=== PATIENT | female | born 1980 | race Caucasian/White ===

== ENCOUNTER 2016-12-07 03:43 | Emergency (ER) | payer BC, OTHER ==
[~2016-12-07] VITALS: Ht 154.9 cm; Wt 126.0 kg
[~2016-12-07 03:43] MED LIST: MISC-696; MTR600X PO; OXYC5TAB PO; PRENTAB26 PO
[2016-12-07 03:46] VITALS: TEMP 36.9; Ht 154.9 cm; Wt 126.0 kg
[2016-12-07] MEDS ORDERED: MoRPHine SULFATE 10 MG/ML CARP/VIAL IM STA (04:07)
[2016-12-07] MEDS ORDERED: OXYC1TAB3 PO (04:13)
[2016-12-07] MEDS ORDERED: PRED20TA PO (04:13)
--- NOTE | 2016-12-07 04:14 | EMERGENCY ROOM VISIT NOTE ---
ED Visit Note First contact with patient: 03:54 CHIEF COMPLAINT: Low back and right leg pain HISTORY OF PRESENT ILLNESS: This 36-year-old female patient presents to the emergency department ambulatory complaining of pain in the low back which began 3 weeks ago. The pain was gradual in onset, is now constant and worse with movement. The patient notes the pain as sharp and a 9/10. The patient has taken Aleve and muscle relaxer with no relief of the pain. The patient denies any bowel or bladder difficulties. There has been no leg numbness or weakness, and no change in sensation. No nausea or vomiting or abdominal pain. No chest pain or shortness of breath. The patient has not had prior back injuries. The patient states her symptoms started 3 weeks ago. She initially was taking Tylenol and felt better. She states that 2 weeks ago she began to develop some spasm in her back. She called her family doctor and was prescribed Aleve and a muscle relaxer. The pain seemed to do much better for a short time. On Wednesday , she had an injection of Toradol as the pain became worse. She states that tonight she was unable to sleep because she had such discomfort. The patient denies any fevers. She denies any loss of bowel or bladder control. She denies any saddle or seizures. She denies any numbness, tingling, weakness in the legs. The pain is across the low back, into the right buttock and down the right leg. REVIEW OF SYSTEMS: No dysuria or increased urinary frequency. A 10 system review of systems was completed and pertinent positives and negatives are in the HPI. ALLERGIES: Not known drug allergies MEDICATIONS: Vitamins PMH: Patient denies SOCIAL HISTORY: The patient lives locally. She does not smoke. PHYSICAL EXAM: VITALS: Vitals are noted on the nurse's note and reviewed by myself. No abnormalities noted. GENERAL: This is a 36-year-old female, in no acute distress, nondiaphoretic, well-developed well-nourished. SKIN: The skin was without rashes, erythema, edema, or bruising. Capillary refill less than 2 seconds. NECK: Supple without nuchal rigidity. No cervical spine tenderness. No paraspinous muscle tenderness. HEART: Regular rate and rhythm without murmurs gallops or rubs. LUNGS: Clear to auscultation bilaterally without wheezes, rales or rhonchi. ABDOMEN: Positive bowel sounds x 4. Normal tympanic percussion. Soft, nontender, without masses or organomegaly. Helm sign negative. MUSCULOSKELETAL: No muscle atrophy, erythema, or edema noted of the back. There is with no significant tenderness over the lumbar spinous processes. There is minimal tenderness over the paraspinous muscles on the right. There is tenderness to palpation in the right sciatic notch. There is no tenderness over the thoracic spine or paraspinous muscles. There are no muscle spasms present. The patient is slow to move around with maximum tenderness with extension. Negative straight leg raise test. NEURO: Patient was alert and oriented to person place and time. Normal sensation to light and sharp touch. Deep tendon reflexes 2+ in the lower extremities. Dorsalis pedis pulse 2+ bilaterally. Strength is 5/5 in the lower extremities bilaterally. EMERGENCY DEPARTMENT COURSE: The patient was seen and examined. Previous visits were reviewed. The patient's symptoms seem to be consistent with sciatica. She does not have any neurologic deficit on exam or by history. I do not suspect infectious process, cauda equina or cord compression. She does not have any abdominal or urinary symptoms. The patient was given 6 mg IM morphine and 10 mg IM Decadron as well as 4 mg oral Zofran. The patient was feeling markedly improved. She'll be given prescriptions for prednisone and oxycodone. She should contact her family doctor first thing in the morning to schedule a follow-up appointment for further evaluation and management. She should return to the ER if any worsening symptoms. DIFFERENTIAL DIAGNOSIS: Lumbar strain, degenerative disc disease, spondylolisthesis, herniated disc, spinal stenosis, osteoporosis, fracture, cauda equina syndrome, neoplasm, infection, inflammatory arthritis, among others. Current/Historical Medications Scheduled Multivitamin (Multivitamin), 1 TAB PO DAILY Prednisone (Prednisone), 0 PO DAILY Scheduled PRN Oxycodone Ir (Roxicodone Ir), 1-2 TAB PO Q4H PRN for Pain Allergies Coded Allergies: No Known Allergies (Unverified , 12/07/16) Vital Signs Date Time Temp Pulse Resp B/P (MAP) Pulse Ox O2 Delivery O2 Flow Rate FiO2 12/07/16 04:47 71 18 140/94 100 12/07/16 03:46 36.9 104 18 172/98 94 Room Air Medications Administered Medications (Trade) Dose Ordered Sig/Kalen Route Start Time Stop Time Status Last Admin Dose Admin Ondansetron HCl (Zofran Odt) 4 mg ONE ONCE PO 12/07/16 04:15 12/07/16 04:16 DC 12/07/16 04:16 4 MG Morphine Sulfate (MoRPHine SULFATE INJ) 6 mg NOW STAT IM 12/07/16 04:07 12/07/16 04:09 DC 12/07/16 04:16 6 MG Dexamethasone Sodium Phosphate (Decadron Inj) 10 mg NOW ONCE IM 12/07/16 04:15 12/07/16 04:16 DC 12/07/16 04:15 10 MG Oxycodone HCl (Roxicodone Immediate Rel 5MG Home Pack) 1 homepack UD ONCE PO 12/07/16 04:15 12/07/16 04:16 DC 12/07/16 04:16 1 HOMEPACK Departure Information Impression Primary Impression: Sciatica of right side Dispostion Home / Self-Care Condition GOOD Prescriptions Prednisone (Prednisone) 20 Mg Tab 0 PO DAILY, #18 TAB 3 DAILY FOR 3 DAYS, THEN 2 DAILY FOR 3 DAYS, THEN 1 DAILY FOR 3 DAYS. Prov: Tierra Carrasco PA-C 12/07/16 Oxycodone Ir (Roxicodone Ir) 5 Mg Tab 1-2 TAB PO Q4H Y for Pain, #36 TAB For Initial Treatment Prov: Tierra Carrasco PA-C 12/07/16 Referrals Estephania Grant DO (PCP) Patient Instructions ED Sciatica, [facility] Additional Instructions Oxy IR 1-2 tablets every 4-6 hrs as needed for severe pain. No driving or alcohol use with Oxy IR. Prednisone as prescribed, until finished Contact your family doctor first thing in the morning to schedule a follow-up appointment for further evaluation and management Return to the emergency Department with any worsening pain, loss of bowel or bladder control, numbness in the groin or generalized worsening symptoms.
[2016-12-07] MEDS ORDERED: DEXAMETHASONE SOD INJ 10 MG/ML VIAL IM ONE (04:15)
[2016-12-07] MEDS ORDERED: ONDANSETRON 4MG OD TAB PO ONE (04:15)
[2016-12-07] MEDS ORDERED: OXYCODONE IR HOME PACK PO ONE (04:15)
[2016-12-07] MEDS ORDERED: MULT-506 PO (04:39)
[2016-12-07 04:47] VITALS: BP 140/94; PULSE 71; O2SAT 100
== END 2016-12-07 04:47 | disposition home or self-care (01) ==
LOC: C.EDB 03:45
DX: M54.41 Lumbago with sciatica, right side (principal)

== ENCOUNTER → 2017-11-04 | Outpatient (CLI) | payer OTHER ==
[~2017-11-04] MED LIST changes: -MISC-696; -MTR600X PO; +MULT-506 PO; -OXYC5TAB PO; -PRENTAB26 PO
== END | disposition home or self-care (01) ==
LOC: C.LABSPEC 16:16
PROVIDERS: ATTEND Obstetrics & Gynecology
DX: O09.291 Supervision of pregnancy with other poor reproductive or obstetric history, first trimester (principal); Z3A.00 Weeks of gestation of pregnancy not specified

== ENCOUNTER → 2017-11-11 | Outpatient (CLI) | payer OTHER ==
[2017-11-11 16:34] LABS: BASO % 0.3 %; BASO ABS # 0.03 K/uL (0-0.2); EOS % 0.6 %; EOS ABS # 0.07 K/uL (0-0.5); HEMOGLOBIN 12.3 g/dL (12.0-16.0); IG# 0.03 K/uL (0.00-0.02); LYMPH % 24.3 %; MEAN CELL VOLUME 84.9 fL (80-100); MEAN CORPUSCULAR HEMOGLOBIN 28.2 pg (25-34); MEAN CORPUSCULAR HGB CONC 33.2 g/dl (32-36); MONO % 4.6 %; MONO ABS # 0.55 K/uL (0.11-0.59); NEUT % 69.9 %; NEUT ABS # 8.36 K/uL (1.4-6.5); PLATELET COUNT 230 K/uL (130-400); RED CELL DISTRIBUTION WIDTH CV 13.8 % (11.5-14.5); RED CELL DISTRIBUTION WIDTH SD 42.5 fL (36.4-46.3); WHITE BLOOD COUNT 11.94 K/uL (4.8-10.8)
== END | disposition home or self-care (01) ==
LOC: C.LAB1850 14:47
PROVIDERS: ATTEND Obstetrics & Gynecology
DX: O09.291 Supervision of pregnancy with other poor reproductive or obstetric history, first trimester (principal); Z3A.00 Weeks of gestation of pregnancy not specified

== ENCOUNTER → 2017-11-11 | Outpatient (CLI) | payer OTHER | END | disposition home or self-care (01) | LOC: C.PAPS 17:26 | PROVIDERS: ATTEND Obstetrics & Gynecology | DX: Z12.4 Encounter for screening for malignant neoplasm of cervix (principal) ==

== ENCOUNTER 2018-06-06 05:45 | Inpatient (IN) ==
--- NOTE | 2018-06-03 16:03 | Anesthesiology Consultation ---
Date of Service June 03, 2018 Assessment & Plan (1) Encounter for pre-operative examination: Chart Review Chart Review: Acceptable Risk for Surgery and Patient seen in Pre Admission Testing Teaching & Discussion Instructed NPO after midnight before surgery, except medications with 15 cc of water. Medication instructions provided according to the PAT guidelines. History Surgery Operation Date: 06/06/18 07:30 Proposed Procedures p Section in LD - Ritika Madden MD, FACOG Height/Weight Height: 5 ft 2 in Weight: 125.7 kg Allergies Allergy/AdvReac Type Severity Reaction Status Date / Time No Known Allergies Allergy Unverified 05/31/18 13:35 Medications Home Medications Medication Instructions Recorded Confirmed Last Taken [id number] fumarate-FA 1 tab PO DAILY 05/31/18 05/31/18 Unknown [] calcium carbonate [Tums] 200 mg PO BID PRN 05/31/18 05/31/18 Unknown insulin NPH isoph U-100 human 20 - 25 unit SUBCUT PM 05/31/18 05/31/18 Unknown [Humulin N NPH Insulin KwikPen] insulin aspart U-100 [Novolog 15 unit SUBCUT AC 05/31/18 05/31/18 Unknown PenFill U-100 Insulin] Past Medical History Medical History Gestational diabetes Morbid obesity Past Family History Family History Grandmother Family hx of colon cancer Grandmother (Paternal) Family history of diabetes mellitus Grandmother (Maternal) Family history of diabetes mellitus Mother Family history of diabetes mellitus Past Surgical History Surgical History History of adenoidectomy History of section History of tonsillectomy Previous C/S done 2/2 failure to progress (head was too large). Epidural bolused for C/S. Past Anesthesia History No Hx of Anesthesia Complications and No Family Hx of Anesthesia Complications History of PONV No Motion Sickness Screening History of Motion Sickness: Yes Social History Smoking Status: Never smoker Do You Dip or Chew Tobacco: No Hx Alcohol Use: No Hx Substance Use: No substance use type: does not use Exercise / Class Metabolic Activity II 4-5 Yardwork/Stairs/Walk up hill (No SOB or CP with stairs (other than typical amount of SOB being 9 months gestation)) Review of Systems Pt denies any recent chest pain, shortness of breath, palpitations, cough, fever or URI. Physical Exam Vital Signs BP: 148/92 (pt reports 140/90 at OB office today, she is nervous) P: 76bpm SPO2: 97% RA T: 97.7 R: 18 ENMT Mouth: + dental restorations (2 caps); no chipped teeth and no loose teeth Thyromental Distance: > or= 3.5 Finger Breadths (3.5) Mallampati Class: II Neck normal visual inspection; neck extension not limited Respiratory normal respiratory effort Auscultation: lungs clear to auscultation bilaterally Cardiovascular Rate/Rhythm: regular rate and regular rhythm Heart Sounds: no murmur
--- NOTE | 2018-06-03 16:09 | PAT Medication Instructions ---
Medication Instructions Date of Service June 03, 2018 Home Medications [] 1 tab PO DAILY calcium carbonate [Tums] 200 mg PO BID PRN insulin NPH isoph U-100 human [Humulin N NPH Insulin KwikPen] 20 - 25 unit SUBCUT PM insulin aspart U-100 [Novolog PenFill U-100 Insulin] 15 unit SUBCUT AC DO NOT take the morning of surgery calcium carbonate [Tums] 200 mg PO BID PRN insulin aspart U-100 [Novolog PenFill U-100 Insulin] 15 unit SUBCUT AC Take evening before surgery [] 1 tab PO DAILY calcium carbonate [Tums] 200 mg PO BID PRN insulin NPH isoph U-100 human [Humulin N NPH Insulin KwikPen] 20 - 25 unit SUBCUT PM insulin aspart U-100 [Novolog PenFill U-100 Insulin] 15 unit SUBCUT AC Other Notes If you have any questions please call us at [phone] or [phone] or [phone] or [phone]
--- NOTE | 2018-06-03 17:09 | History & Physical Report ---
Date of Service Cristhian is a 38 yo white female EDC06/12/18 who presents for repeat section at 39 weeks. First C/S was done for arrest of descent after pushing for 3 hours. Patient requests repeat C/S. this time complicated by AMA , GDM on insulin, elevated BP's without diagnosis of hypertension. currently not on any anti-hypertensive meds. blood sugars have been controlled although AC's have been 95%tile & 84%tile. O+, Rubella Immune, HbSag/HIV-negative, RPR-NR, chlam/GC-negative anatomy scan complete & normal GBS-negative. Assessment & Plan (1) Gestational diabetes mellitus in , insulin controlled: will take evening dose of insulin the night before the surgery check blood sugar upon admission Present on Admission?: Yes (2) Previous section complicating : IUP at 39 weeks for repeat section. the procedure & its risks reviewed with the patient & her and all qeustions were answered to their satisfaction. see orders for further directions. History of Present Illness Primary Care Provider: Zain Allen Allergies Allergy/AdvReac Type Severity Reaction Status Date / Time No Known Allergies Allergy Unverified 05/31/18 13:35 Home Medications Home Medications Medication Instructions Recorded Confirmed Type [id number] fumarate-FA 1 tab PO DAILY 05/31/18 05/31/18 History [] calcium carbonate [Tums] 200 mg PO BID PRN 05/31/18 05/31/18 History insulin NPH isoph U-100 human 20 - 25 unit SUBCUT PM 05/31/18 05/31/18 History [Humulin N NPH Insulin KwikPen] insulin aspart U-100 [Novolog 15 unit SUBCUT AC 05/31/18 05/31/18 History PenFill U-100 Insulin] Patient History Medical History Gestational diabetes Morbid obesity Surgical History History of adenoidectomy History of section History of tonsillectomy Family History Grandmother Family hx of colon cancer Grandmother (Paternal) Family history of diabetes mellitus Grandmother (Maternal) Family history of diabetes mellitus Mother Family history of diabetes mellitus Social History Preferred Language: Mongolian Communication Ability: Effective 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 Beliefs That Will Affect Care: None Current Living Situation: Family Other Information That Helps Us Care for You: No Feels Safe at Home: Yes Safety Concerns: Feels Safe At This Time Smoking Status: Never smoker Hx Alcohol Use: No Hx Substance Use: No Review of Systems All systems reviewed & are unremarkable except as noted in HPI & below Physical Exam Constitutional: WD/WN, vitals as above Respiratory: normal respiratory effort, lungs clear to auscultation Cardiovascular: RRR, no murmur, no edema Gastrointestinal (Abdomen): normal bowel sounds, soft, nontender, no hepatosplenomegaly Genitourinary: OB Exam Abdomen: + fundal height (obese) and + vertex cervix exam declined
[~2018-06-06 05:45] MED LIST changes: +LACTATED RINGER'S 1,000 ML IV SCH; -MULT-506 PO
[2018-06-06] MEDS ORDERED: LACTATED RINGER'S 1,000 ML IV SCH ×3 (06:00→09:30)
[2018-06-06] MEDS ORDERED: CEFAZOLIN 3,000 MG in DEXTROSE 5% 50 ML IV SCH (06:00)
[2018-06-06] MEDS ORDERED: CITRIC ACID/SODIUM CITRATE 15 ML UDC PO SCH (06:00)
[2018-06-06 06:03] LABS: Basophils # (auto) 0.02 K/uL (0-0.2); Basophils % (auto) 0.2 %; Eosinophils # (auto) 0.06 K/uL (0-0.5); Eosinophils % (auto) 0.5 %; Hemoglobin 13.7 g/dL (12.0-16.0); Immature Granulocytes # (auto) 0.05 K/uL (0.00-0.02); Immature Granulocytes % (auto) 0.4 %; Lymphocytes # (auto) 3.13 K/uL (1.2-3.4); Lymphocytes % (auto) 26.5 %; Mean Corpuscular Volume 85.5 fL (80-100); Mean Platelet Volume 10.7 fL (7.4-10.4); Monocytes % (auto) 5.1 %; Neutrophils # (auto) 7.94 K/uL (1.4-6.5); Neutrophils % (auto) 67.3 %; Platelet Count 199 K/uL (130-400); RDW Coefficient of Variation 14.8 % (11.5-14.5); RDW Standard Deviation 45.3 fL (36.4-46.3); Red Blood Count 4.68 M/uL (4.2-5.4)
[2018-06-06 06:27] LABS: Mean Corpuscular Hgb Conc 34.3 g/dL (32-36)
[2018-06-06] MEDS ORDERED: MoRPHine SULFATE PF 1 MG/ML 10 ML AMP/VIAL ONE (07:17)
[2018-06-06] MEDS ORDERED: ONDANSETRON INJ 2 MG/ML 2 ML VIAL ONE (07:17)
[2018-06-06] MEDS ORDERED: fentaNYL citrate 100 MCG/2 ML VIAL ONE (07:17)
[2018-06-06] MEDS ORDERED: OXYTOCIN 10 UNITS/ML VIAL ONE (07:19)
--- NOTE | 2018-06-06 07:36 | History & Physical Bridge Note ---
Date of Service June 06, 2018 History & Physical Bridge Note I have examined the patient, reviewed the History & Physical and in the interval since the performance of the History & Physical I have noted the following changes of clinical significance: no changes noted
[2018-06-06] MEDS ORDERED: PHENYLEPHRINE 100MCG/ML 5ML SYR ONE (08:23)
[2018-06-06] MEDS ORDERED: PHENYLEPHRINE HCL 10 MG/ML VIAL ONE (08:23)
[2018-06-06] MEDS ORDERED: KETOROLAC 30 MG/ML VIAL ONE (08:37)
[2018-06-06] MEDS ORDERED: ePHEDrine sulfate 50 MG/ML SYR ONE (08:43)
--- NOTE | 2018-06-06 08:47 | Post Operative Brief Note ---
Immediate Post Op Note v1 Date of Surgery June 06, 2018 Pre & Post Diagnosis Operation Date: 06/06/18 07:30 Pre-Op Diagnosis: Prior Caesarean Section;Gestational Diabetes on Insulin; Desires Repeat Post-Op Diagnosis: Same; Delivery of a live female child at 0819 Procedure Operation Date: 06/06/18 07:30 Actual Procedures p Section in LD - Ritika Madden MD, FACOG Surgeon Ritika Madden MD, FACOG Piano Maker Racheal Blackburn MD Estimated Blood Loss 600 Findings Consistent with Post-Op Diagnosis Drains Donahue Catheter
[2018-06-06] MEDS ORDERED: NALOXONE HCL 0.08 MG in SYRINGE 1.8 ML IV PRN (09:07)
[2018-06-06] MEDS ORDERED: DiphenhydrAMINE HCL 50 MG/ML VIAL IV PRN (09:07)
[2018-06-06] MEDS ORDERED: ePHEDrine sulfate 50 MG/ML AMP IV PRN (09:07)
[2018-06-06] MEDS ORDERED: NALOXONE HCL 0.4 MG/1 ML VIAL/CARP IV PRN (09:07)
[2018-06-06] MEDS ORDERED: KETOROLAC 30 MG/ML VIAL IV PRN (09:07)
[2018-06-06] MEDS ORDERED: NALOXONE HCL 1 MG in SODIUM CHLORIDE 0.9% 1000ML 1,000 ML IV PRN (09:07)
[2018-06-06] MEDS ORDERED: ONDANSETRON INJ 2 MG/ML 2 ML VIAL IV PRN (09:07)
[2018-06-06] MEDS ORDERED: NALBUPHINE HCL INJ 10 MG/ML AMP IV PRN (09:07)
[2018-06-06] MEDS ORDERED: LACTATED RINGER'S 500 ML IV PRN (09:07)
[2018-06-06] MEDS ORDERED: MoRPHine SULFATE PF 1 MG/ML 10 ML AMP/VIAL INT SPINAL ONE (09:07)
[2018-06-06] MEDS ORDERED: ACETAMINOPHEN 1000 MG/100 ML IV IV PRN (09:10)
[2018-06-06] MEDS ORDERED: NO NARCOTICS OR SEDATIVES SCH (09:15)
[2018-06-06] MEDS ORDERED: SODIUM CHLORIDE 0.9% 1000ML 1,000 ML IV SCH (09:15)
[2018-06-06] MEDS ORDERED: HYDROCORTISONE ACETATE 25 MG SUPP PR PRN (09:30)
[2018-06-06] MEDS ORDERED: DIPHTHERIA/TETANUS/PERTUSSIS 0.5 ML SYR/VIAL IM ONE (09:30)
[2018-06-06] MEDS ORDERED: PROMETHAZINE HCL 25 MG in SODIUM CHLORIDE 0.9% 50 ML IV PRN (09:30)
[2018-06-06] MEDS ORDERED: SUPERCREAM 0.870% 15 GM JAR EXT PRN (09:30)
[2018-06-06] MEDS ORDERED: MAGNESIUM HYDROXIDE SUSP 30 ML UDC PO PRN (09:30)
[2018-06-06] MEDS ORDERED: BENZOCAINE 20% AER SPR 82.5 GM CAN EXT PRN (09:30)
[2018-06-06] MEDS ORDERED: SENNA 8.6 MG TAB PO PRN (09:30)
--- NOTE | 2018-06-06 09:37 | Operative Report ---
DATE OF OPERATION: 06/06/2018 SURGEON: Ritika Montgomery MD ELECTRO MECHANICAL TECHNICIAN: Racheal Blackburn MD PREOPERATIVE DIAGNOSES: Intrauterine at 39 weeks, prior section, history of gestational diabetes on insulin. POSTOPERATIVE DIAGNOSES: Intrauterine at 39 weeks, prior section, history of gestational diabetes on insulin plus delivery of a viable female infant, 7 pounds 11 ounces. PROCEDURE: Repeat low transverse section. ANESTHESIA: Subarachnoid block. BLOOD LOSS: 600 mL HISTORY OF PRESENT ILLNESS: The patient is a 38-year-old 2, para 1-0-0-1 white female, EDC 06/12/2018 who presented for repeat section at 39 weeks. Her prior section was done because of arrest of descent after pushing for 3 hours. She is requesting repeat section with this . This was complicated by advanced maternal age and gestational diabetes on insulin. She also had some elevated blood pressures, but without the diagnosis of hypertension. GROSS FINDINGS: Uterus is gravid and consistent with a term in size. There were several thin omental adhesions to the anterior abdominal wall. Bilateral ovaries and fallopian tubes were grossly normal. DESCRIPTION OF PROCEDURE: After the patient received adequate subarachnoid block, she was prepped and draped in usual sterile fashion. A low transverse skin incision was made with a scalpel and carried the fascia with the same scalpel. The fascial incision was then extended with Haywood scissors and the underlying rectus muscle bluntly sharply dissected off of the overlying fascia. The rectus muscles were divided in the midline and the underlying peritoneum elevated and entered bluntly. The bladder was then taken down with Metzenbaum scissors and placed behind a bladder blade. Lower segment was entered with a scalpel and extended transversely. The membranes were ruptured for clear fluid. Infant was delivered from the vertex presentation with moderate fundal pressure and vacuum assistance to gently bring the head through the incision. The rest of the followed with ease and the cord was clamped and cut. The mouth and nasopharynx were suctioned. On delivery, there was spontaneous crying and the was moving all 4 limbs. It was handed off to Dr. Maria who was in attendance as senior data integration developer. The placenta was then expressed intact with a 3-vessel cord. The uterine cavity explored and found to be free of any remaining tissue or membranes. The uterus was then closed in 2 layers in a running locking imbricating fashion with 0 Monocryl. Hemostasis was noted to be excellent in the posterior cul-de-sac was then irrigated with normal saline and the uterine incision was examined once more and continued to have excellent hemostasis. The uterus was placed back inside the abdominal cavity and the gutters were explored and found to be free of any clot or fluid. The anterior cul-de-sac was then irrigated with normal saline. The fascia was then closed in a running fashion with 0 Vicryl, skin edges after closing Karolyn's fascia with 2-0 plain catgut. The adipose layer was irrigated as well with normal saline and skin edges reapproximated using subcuticular stitch of 4-0 Vicryl. Urine was clear at the end the case. Mother and were doing well. I attest to the content of the Intraoperative Record and any orders documented therein. Any exception s are noted below.
--- NOTE | 2018-06-06 10:01 | Anesthesiology Progress Note ---
Date of Service June 06, 2018 Anesthesia Post Procedure Vital Signs Vital Signs: Temp Pulse Resp BP Pulse Ox 06/06/18 09:56 62 125/63 06/06/18 09:54 78 95 06/06/18 09:49 64 96 06/06/18 09:46 67 134/62 06/06/18 09:44 75 94 06/06/18 09:40 18 06/06/18 09:39 76 95 06/06/18 09:36 78 129/73 06/06/18 09:34 67 95 06/06/18 09:30 18 06/06/18 09:29 71 95 06/06/18 09:26 70 134/63 06/06/18 09:24 70 96 06/06/18 09:20 18 06/06/18 09:19 68 96 06/06/18 09:16 69 99/55 L 06/06/18 09:14 69 93 06/06/18 09:10 16 06/06/18 09:09 72 95 06/06/18 09:05 74 99/56 L 06/06/18 09:04 74 92 06/06/18 08:59 36.4 C L 72 18 98/55 L 93 06/06/18 06:04 36.4 C L 82 18 138/73 06/06/18 06:00 82 138/71 06/06/18 05:58 93 H 191/98 H Notes Mental Status: alert / awake / arousable and participated in evaluation Nausea / Vomiting: adequately controlled Pain: adequately controlled Airway Patency, RR, SpO2: stable & adequate BP & HR: stable & adequate Hydration State: stable & adequate Neuraxial Anesthesia: was administered and sensory block is resolving Anesthetic Complications: no major complications apparent
[2018-06-06] MEDS: OXYTOCIN 20 UNITS in LACTATED RINGER'S 1,000 ML IV SCH ×2 (10:33→18:34)
[2018-06-06] MEDS: SIMETHICONE 80 MG CHEW PO SCH ×4 (10:34→20:39)
[2018-06-06] MEDS: PRENATAL VITAMIN 1 TAB PO SCH (10:34)
[2018-06-06] MEDS: DOCUSATE SODIUM 100 MG CAP PO SCH ×2 (10:35→20:39)
[2018-06-06] MEDS: FERROUS SULFATE 325 MG TAB PO SCH (10:35)
[2018-06-07] MEDS ORDERED: DC INTRASPINAL MORPHINE ONE (03:08)
[2018-06-07] MEDS ORDERED: ONDANSETRON INJ 2 MG/ML 2 ML VIAL IV PRN (03:09)
[2018-06-07] MEDS ORDERED: KETOROLAC 30 MG/ML VIAL IV PRN (03:09)
[2018-06-07] MEDS ORDERED: ZOLPIDEM TARTRATE 5 MG TAB PO PRN (03:09)
[2018-06-07] MEDS ORDERED: DiphenhydrAMINE HCL 50 MG/ML VIAL IV PRN (03:09)
--- NOTE | 2018-06-07 07:02 | Obstetrical Progress Note ---
Date of Service <Augusto Blackburn - Last Filed: 06/07/18 07:01> June 07, 2018 Assessment & Plan <Augusto Blackburn - Last Filed: 06/07/18 07:01> (1) Status post section routine follow-up: -vital signs reviewed and WNL -last Hgb 13.7 -Blood type: O+, GBS-, Rubella Immune -pt doing well clinically -encourage ambulation, monitor and control pain with motrin tylenol, cont regular diet, monitor lochia -cont encourage breast feeding Subjective <Augusto BrendaMarizol Blackburn - Last Filed: 06/07/18 07:01> 38 y/o POD1 found in bed this morning in NAD. Reports no acute overnight events. Pt states that she has no pain other than appropriate soreness. Tolerating PO intake without N/V. Able to ambulate without issue. She is breast feeding without issue. No issues with voiding, no BM yet. No other acute concerns or complaints. Review of Systems All systems reviewed & are unremarkable except as noted in HPI & below Physical Exam <Augusto Blackburn - Last Filed: 06/07/18 07:01> Vital Signs (Past 24 Hours) Last Vital Signs Temp 37.0 C 06/07/18 03:31 Pulse 86 06/07/18 03:31 Resp 18 06/07/18 03:31 BP 121/72 06/07/18 03:31 Pulse Ox 94 06/07/18 03:31 Constitutional WD/WN, vitals as above Eyes PERRL, conjunctivae normal, anicteric sclerae ENMT external ear and nose normal, oropharynx normal Respiratory normal respiratory effort, lungs clear to auscultation Cardiovascular RRR, no murmur, no edema Gastrointestinal (Abdomen) mild abd tenderness incision C/D/I Skin no rashes, warm and dry Psychiatric A+Ox3, euthymic affect Lymphatic no LE swelling, no calf tenderness Results & Data <Augusto BlackburnDO - Last Filed: 06/07/18 07:01> Laboratory Results Laboratory Results - last 24 hr 06/06/18 06/06/18 05:52 07:12 POC Glucose 66 L* Blood Type O Positive Antibody Screen NEGATIVE Medications Administered Current Inpatient Medications Benzocaine (Dermoplast Pain Relieving [place]) 1 appln EXT UD PRN PRN Reason: use on skin as needed Stop: 07/06/18 09:29 Bisacodyl (Dulcolax) 5 mg PO 2000 [facility] Stop: 06/07/18 20:01 Bisacodyl (Dulcolax) 10 mg NE PRN PRN PRN Reason: Constipation Stop: 07/08/18 08:38 Cocaine HCl (Supercream 0.870%) 1 gm EXT UD PRN PRN Reason: hemmorrhoidal inflammation Stop: 06/20/18 09:29 Diphenhydramine HCl (Benadryl) 25 mg IV QID PRN PRN Reason: Itching Stop: 07/07/18 03:08 Diphenhydramine HCl (Benadryl Capsule) 25 mg PO QID PRN PRN Reason: Itching Stop: 07/07/18 03:08 Docusate Sodium (Colace) 100 mg PO BID [facility] Stop: 07/06/18 09:29 Last Admin: 06/06/18 20:39 Dose: 100 mg Documented by: Ferrous Sulfate (Feosol) 325 mg PO QAM [facility] Stop: 07/06/18 09:29 Last Admin: 06/06/18 10:35 Dose: Not Given Documented by: Hydrocortisone (Anusol Hc) 25 mg NE BID PRN PRN Reason: Hemorrhoids Stop: 07/06/18 09:29 Lactated Ringer's (Lr) 1,000 mls @ 125 mls/hr IV .Q8H KARYNA Stop: 07/06/18 09:29 Last Admin: 06/06/18 10:35 Dose: Not Given Documented by: Oxytocin 20 units/ Lactated (Ringer's) 1,002 mls @ 125 mls/hr IV .Q8H1M [facility] Stop: 07/06/18 09:29 Last Admin: 06/06/18 18:34 Dose: 125 mls/hr Documented by: Promethazine HCl 25 mg/ Sodium (Chloride) 51 mls @ 204 mls/hr IV Q4H PRN PRN Reason: Nausea And Vomiting Stop: 07/06/18 09:29 Ibuprofen (Motrin) 600 mg PO Q4H PRN PRN Reason: Pain Stop: 07/06/18 09:29 Ketorolac Tromethamine (Toradol) 30 mg IV Q6H PRN PRN Reason: Pain Stop: 06/12/18 03:08 Magnesium Hydroxide (Milk Of Magnesia) 30 ml PO HS PRN PRN Reason: Constipation Stop: 07/06/18 09:29 Ondansetron HCl (Zofran) 4 mg IV Q4H PRN PRN Reason: Nausea And Vomiting Stop: 07/07/18 03:08 Oxycodone/Acetaminophen (Percocet 5mg/325mg) 1 - 2 tab PO Q4H PRN PRN Reason: Pain Stop: 06/21/18 03:08 Prenat Multivit/[place]/Iron/Folic Ac ( Vitamin) 1 tab PO QAM KARYNA Stop: 07/06/18 09:29 Last Admin: 06/06/18 10:34 Dose: Not Given Documented by: Sennosides (Senokot) 17.2 mg PO HS PRN PRN Reason: Constipation Stop: 07/06/18 09:29 Simethicone (Mylicon) 80 mg PO QID KARYNA Stop: 07/06/18 09:29 Last Admin: 06/06/18 20:39 Dose: 80 mg Documented by: Zolpidem Tartrate (Ambien) 5 mg PO HS PRN PRN Reason: Sleep Stop: 07/07/18 03:08 <Ritika Madden MD, FACOG - Last Filed: 06/07/18 07:35> Co-Signing Physician Notes Resident Physician Supervision Note: I interviewed and examined the patient. Discussed with Dr. Oziel Blackburn and agree with findings and plan as documented in the note. Any exceptions or clarif ications are listed here: [None] Documented By: Ritika Madden MD, FACOG Resident Activity Tracking <Augusto Blackburn DO - Last Filed: 06/07/18 07:01> Resident Involvement: Resident Care Provided Care Provided: OB Delivery
[2018-06-07 07:13] LABS: Basophils # (auto) 0.02 K/uL (0-0.2); Basophils % (auto) 0.2 %; Eosinophils # (auto) 0.17 K/uL (0-0.5); Eosinophils % (auto) 1.8 %; Hemoglobin 11.6 g/dL (12.0-16.0); Immature Granulocytes # (auto) 0.03 K/uL (0.00-0.02); Immature Granulocytes % (auto) 0.3 %; Lymphocytes # (auto) 2.45 K/uL (1.2-3.4); Lymphocytes % (auto) 25.2 %; Mean Corpuscular Hgb Conc 33.1 g/dL (32-36); Mean Corpuscular Volume 87.9 fL (80-100); Mean Platelet Volume 10.5 fL (7.4-10.4); Monocytes # (auto) 0.63 K/uL (0.11-0.59); Monocytes % (auto) 6.5 %; Neutrophils # (auto) 6.41 K/uL (1.4-6.5); Platelet Count 147 K/uL (130-400); RDW Coefficient of Variation 15.1 % (11.5-14.5); RDW Standard Deviation 48.4 fL (36.4-46.3); Red Blood Count 3.98 M/uL (4.2-5.4); White Blood Count 9.71 K/uL (4.8-10.8)
[2018-06-07] MEDS: DOCUSATE SODIUM 100 MG CAP PO SCH ×2 (08:43→20:22)
[2018-06-07] MEDS: SIMETHICONE 80 MG CHEW PO SCH ×4 (08:43→20:22)
[2018-06-07] MEDS: PRENATAL VITAMIN 1 TAB PO SCH (08:44)
[2018-06-07] MEDS: FERROUS SULFATE 325 MG TAB PO SCH (08:44)
--- NOTE | 2018-06-07 09:34 | Anesthesiology Progress Note ---
Date of Service June 07, 2018 Anesthesia Post Procedure Vital Signs Vital Signs: Temp Pulse Pulse Resp BP BP Pulse Ox 06/07/18 07:21 98.2 F 76 24 132/84 96 06/07/18 03:31 98.6 F 86 18 121/72 94 06/07/18 03:00 18 95 06/07/18 02:00 18 94 06/07/18 01:00 16 90 06/07/18 00:20 18 93 06/06/18 23:30 99.0 F 85 18 126/72 93 06/06/18 22:20 20 93 06/06/18 21:20 20 94 06/06/18 20:20 20 95 06/06/18 20:00 98.6 F 82 20 135/82 93 06/06/18 18:20 20 94 06/06/18 17:20 20 95 06/06/18 16:20 97.7 F 63 20 134/80 94 06/06/18 14:30 16 94 06/06/18 13:30 18 94 06/06/18 13:07 53 L 20 123/70 06/06/18 12:30 58 L 20 117/57 L 95 06/06/18 12:00 55 L 20 135/78 95 06/06/18 11:30 97.7 F 55 L 20 141/84 H 96 06/06/18 11:00 97.7 F 16 06/06/18 10:59 60 95 06/06/18 10:56 60 143/72 H 06/06/18 10:54 62 95 06/06/18 10:49 54 L 95 06/06/18 10:46 60 149/70 H 06/06/18 10:44 59 L 96 06/06/18 10:39 71 95 06/06/18 10:38 63 136/80 06/06/18 10:34 60 96 06/06/18 10:30 16 06/06/18 10:29 63 97 06/06/18 10:24 58 L 94 06/06/18 10:19 60 94 06/06/18 10:16 64 136/64 06/06/18 10:14 60 95 06/06/18 10:09 61 95 06/06/18 10:06 64 127/62 06/06/18 10:04 69 95 06/06/18 10:00 16 06/06/18 09:59 70 95 06/06/18 09:56 62 125/63 06/06/18 09:54 78 95 06/06/18 09:50 18 06/06/18 09:49 64 96 06/06/18 09:46 67 134/62 06/06/18 09:44 75 94 06/06/18 09:40 18 06/06/18 09:39 76 95 06/06/18 09:36 78 129/73 Pulse Ox 06/07/18 07:21 06/07/18 03:31 06/07/18 03:00 06/07/18 02:00 06/07/18 01:00 06/07/18 00:20 06/06/18 23:30 06/06/18 22:20 06/06/18 21:20 06/06/18 20:20 06/06/18 20:00 06/06/18 18:20 06/06/18 17:20 06/06/18 16:20 06/06/18 14:30 06/06/18 13:30 06/06/18 13:07 06/06/18 12:30 06/06/18 12:00 06/06/18 11:30 96 06/06/18 11:00 06/06/18 10:59 06/06/18 10:56 06/06/18 10:54 06/06/18 10:49 06/06/18 10:46 06/06/18 10:44 06/06/18 10:39 06/06/18 10:38 06/06/18 10:34 06/06/18 10:30 06/06/18 10:29 06/06/18 10:24 06/06/18 10:19 06/06/18 10:16 06/06/18 10:14 06/06/18 10:09 06/06/18 10:06 06/06/18 10:04 06/06/18 10:00 06/06/18 09:59 06/06/18 09:56 06/06/18 09:54 06/06/18 09:50 06/06/18 09:49 06/06/18 09:46 06/06/18 09:44 06/06/18 09:40 06/06/18 09:39 06/06/18 09:36 Pain Intensity Bilateral Abdomen: Pain Intensity: 0 Notes Mental Status: alert / awake / arousable and participated in evaluation Nausea / Vomiting: adequately controlled Pain: adequately controlled Airway Patency, RR, SpO2: stable & adequate BP & HR: stable & adequate Hydration State: stable & adequate Neuraxial Anesthesia: was administered and sensory block resolved Anesthetic Complications: no major complications apparent and Pt Satisfied with anesthetic care
[2018-06-07] MEDS: IBUPROFEN 600 MG TAB PO PRN ×2 (16:39→22:59)
[2018-06-07] MEDS: OXYCODONE/ACETAMINOPHEN 5mg/325mg TAB PO PRN ×2 (16:40→22:58)
[2018-06-07] MEDS ORDERED: BISACODYL 5 MG TABEC PO SCH (20:00)
--- NOTE | 2018-06-08 07:08 | Obstetrical Progress Note ---
Date of Service <Augusto Blackburn - Last Filed: 06/08/18 07:08> June 08, 2018 Assessment & Plan <Augusto Blackburn - Last Filed: 06/08/18 07:08> (1) Status post section routine follow-up: -vital signs reviewed and WNL -last Hgb 11.6 -Blood type: O+, GBS-, Rubella Immune -pt doing well clinically -encourage ambulation, monitor and control pain with motrin tylenol, cont regular diet, monitor lochia -cont encourage breast feeding -plan for d/c today Subjective <Augusto Blackburn - Last Filed: 06/08/18 07:08> 38 y/o POD2 found in bed this morning in NAD. Reports no acute overnight events. Pt states that she has no pain other than appropriate soreness. Tolerating PO intake without N/V. Able to ambulate without issue. She is breast feeding without issue. No issues with voiding, no BM yet. No other acute concerns or complaints. Pt desires to be d/c today. Review of Systems All systems reviewed & are unremarkable except as noted in HPI & below Physical Exam <Augusto Blackburn DO - Last Filed: 06/08/18 07:08> Vital Signs (Past 24 Hours) Last Vital Signs Temp 36.4 C L 06/07/18 23:10 Pulse 79 06/08/18 05:45 Resp 18 06/08/18 05:45 BP 127/81 06/08/18 05:45 Pulse Ox 97 06/07/18 16:45 Constitutional WD/WN, vitals as above Eyes PERRL, conjunctivae normal, anicteric sclerae ENMT external ear and nose normal, oropharynx normal Respiratory normal respiratory effort, lungs clear to auscultation Cardiovascular RRR, no murmur, no edema Gastrointestinal (Abdomen) mild abd tenderness Incision C/D/I Skin no rashes, warm and dry Psychiatric A+Ox3, euthymic affect Lymphatic no LE swelling, no calf tenderness Results & Data <Augusto BrendaMarizol BlackburnDO - Last Filed: 06/08/18 07:08> Laboratory Results Laboratory Results - last 24 hr 06/07/18 06:31 WBC 9.71 RBC 3.98 L Hgb 11.6 L Hct 35.0 L MCV 87.9 MCH 29.1 MCHC 33.1 RDW Std Deviation 48.4 H RDW Coeff of Camron 15.1 H Plt Count 147 MPV 10.5 H Immature Gran % (Auto) 0.3 Neut % (Auto) 66.0 Lymph % (Auto) 25.2 [place] % (Auto) 6.5 Eos % (Auto) 1.8 Baso % (Auto) 0.2 Immature Gran # (Auto) 0.03 H Neut # (Auto) 6.41 Lymph # (Auto) 2.45 [place] # (Auto) 0.63 H Eos # (Auto) 0.17 Baso # (Auto) 0.02 Medications Administered Current Inpatient Medications Benzocaine (Dermoplast Pain Relieving Friendship) 1 appln EXT UD PRN PRN Reason: use on skin as needed Stop: 07/06/18 09:29 Bisacodyl (Dulcolax) 10 mg [place] PRN PRN PRN Reason: Constipation Stop: 07/08/18 08:38 Cocaine HCl (Supercream 0.870%) 1 gm EXT UD PRN PRN Reason: hemmorrhoidal inflammation Stop: 06/20/18 09:29 Diphenhydramine HCl (Benadryl) 25 mg IV QID PRN PRN Reason: Itching Stop: 07/07/18 03:08 Diphenhydramine HCl (Benadryl Capsule) 25 mg PO QID PRN PRN Reason: Itching Stop: 07/07/18 03:08 Docusate Sodium (Colace) 100 mg PO BID [facility] Stop: 07/06/18 09:29 Last Admin: 06/07/18 20:22 Dose: 100 mg Documented by: Ferrous Sulfate (Feosol) 325 mg PO QAM KARYNA Stop: 07/06/18 09:29 Last Admin: 06/07/18 08:44 Dose: 325 mg Documented by: Hydrocortisone (Anusol Hc) 25 mg [place] BID PRN PRN Reason: Hemorrhoids Stop: 07/06/18 09:29 Lactated Ringer's (Lr) 1,000 mls @ 125 mls/hr IV .Q8H [facility] Stop: 07/06/18 09:29 Last Admin: 06/06/18 10:35 Dose: Not Given Documented by: Oxytocin 20 units/ Lactated (Ringer's) 1,002 mls @ 125 mls/hr IV .Q8H1M KARYNA Stop: 07/06/18 09:29 Last Admin: 06/06/18 18:34 Dose: 125 mls/hr Documented by: Promethazine HCl 25 mg/ Sodium (Chloride) 51 mls @ 204 mls/hr IV Q4H PRN PRN Reason: Nausea And Vomiting Stop: 07/06/18 09:29 Ibuprofen (Motrin) 600 mg PO Q4H PRN PRN Reason: Pain Stop: 07/06/18 09:29 Last Admin: 06/07/18 22:59 Dose: 600 mg Documented by: Ketorolac Tromethamine (Toradol) 30 mg IV Q6H PRN PRN Reason: Pain Stop: 06/12/18 03:08 Magnesium Hydroxide (Milk Of Magnesia) 30 ml PO HS PRN PRN Reason: Constipation Stop: 07/06/18 09:29 Ondansetron HCl (Zofran) 4 mg IV Q4H PRN PRN Reason: Nausea And Vomiting Stop: 07/07/18 03:08 Oxycodone/Acetaminophen (Percocet 5mg/325mg) 1 - 2 tab PO Q4H PRN PRN Reason: Pain Stop: 06/21/18 03:08 Last Admin: 06/07/18 22:58 Dose: 1 tab Documented by: Prenat Multivit/[place]/Iron/Folic Ac ( Vitamin) 1 tab PO QAM [facility] Stop: 07/06/18 09:29 Last Admin: 06/07/18 08:44 Dose: 1 tab Documented by: Sennosides (Senokot) 17.2 mg PO HS PRN PRN Reason: Constipation Stop: 07/06/18 09:29 Simethicone (Mylicon) 80 mg PO QID [facility] Stop: 07/06/18 09:29 Last Admin: 06/07/18 20:22 Dose: 80 mg Documented by: Zolpidem Tartrate (Ambien) 5 mg PO HS PRN PRN Reason: Sleep Stop: 07/07/18 03:08 <Charlie Schuler MD, FACOG - Last Filed: 06/08/18 07:52> Co-Signing Physician Notes Resident Physician Supervision Note: I interviewed and examined the patient. Discussed with Dr. Early and agree with findings and plan as documented in the note. Any exceptions or clarifications are listed here: [None] Documented By: Charlie Schuler MD, FACOG Resident Activity Tracking <Augusto Blackburn, DO - Last Filed: 06/08/18 07:08> Resident Involvement: Resident Care Provided Care Provided: OB Delivery
[2018-06-08 07:34] LABS: Hematocrit (blood only) 35.8 % (37-47); Hemoglobin 11.9 g/dL (12.0-16.0)
[2018-06-08] MEDS: IBUPROFEN 600 MG TAB PO PRN (08:07)
[2018-06-08] MEDS: OXYCODONE/ACETAMINOPHEN 5mg/325mg TAB PO PRN (08:08)
[2018-06-08] MEDS: DOCUSATE SODIUM 100 MG CAP PO SCH (08:09)
[2018-06-08] MEDS: PRENATAL VITAMIN 1 TAB PO SCH (08:09)
[2018-06-08] MEDS: FERROUS SULFATE 325 MG TAB PO SCH (08:09)
[2018-06-08] MEDS: SIMETHICONE 80 MG CHEW PO SCH (08:10)
[2018-06-08] MEDS ORDERED: BISACODYL 10 MG SUPP PR PRN (08:39)
--- NOTE | 2018-06-09 10:40 | Discharge Summary ---
Date of Service June 15, 2018 Discharge Data Consultations 06/06/18 05:44 Consult Anesthesiology Stat Procedures Performed Operation Date: 06/06/18 07:30 Actual Procedures p Section in LD - Ritika Madden MD, FACOG
--- NOTE | 2018-06-10 17:00 | Discharge Summary ---
PRINCIPAL DIAGNOSES: Intrauterine at 39 weeks, prior section for failure of descent. PRINCIPAL PROCEDURE: Repeat low transverse section. HISTORY OF PRESENT ILLNESS: The patient is a 38-year-old white female G2, P1-0-0-1 who has an EDC of 06/12/2018 who presented for repeat section at 39 weeks. The section was done without complications. She remained afebrile throughout her hospital course. She was eating regular diet and ambulating well as well as voiding well on her 1st postop day. She was requesting to go home on her second postop day. Hemoglobin on admission 13.7, hematocrit of 40.0. First postop day hemoglobin 11.6, hematocrit 35.0 and second postop day hemoglobin 11.9, hematocrit 35.8. She was sent home in good condition with prescriptions for Percocet 1-2 tablets p.o. q. 4 hours p.r.n. pain, Motrin 600 mg p.o. q. 4 hours p.r.n. pain. She is to call for temperature of 101 degrees or higher, heavy vaginal bleeding, burning with urination, increased redness, drainage or pain in her incision, calf tenderness or any other concerns.
== END 2018-06-08 13:25 | disposition home or self-care (01) | DRG 787 ==
LOC: 4S1 05:45 → EDSTATUS 10:10 → 4S2 12:05